=== PATIENT | female | born 1945 | race Caucasian/White ===

== ENCOUNTER 2018-05-17 13:08 | Observation (INO) | payer OTHER ==
--- OUTSIDE RECORDS SUMMARY | 2018-05-17 13:10 | XMS REPORT | Clinical Summary ---
:1945 Author Organization [facility] Address [address] [place] [address] Care Team Providers Name Role Phone Ken Hastings MD Primary Care Provider Allergies Active Allergy Reactions Severity Noted Date Comments Codeine Other (See Comments) 04/01/2016 nausea Medications Medication Sig Dispensed Refills Start Date End Date Status aspirin (ECOTRIN) 81 Take 81 mg by 0 Active MG enteric coated mouth daily. tablet diphenhydrAMINE Take 25 mg by 0 Active (BENADRYL ALLERGY) 25 mouth daily as mg tablet needed for sleep. ALPRAZolam (XANAX) 1 TK ONE T PO HS 5 03/15/2016 Active MG tablet PRF INSOMNIA CLOPIDOGREL BISULFATE Take by mouth. 0 Active (PLAVIX ORAL) atorvastatin TK 1 T PO QD 3 11/11/2016 Active (LIPITOR) 80 MG tablet SYMBICORT 80-4.5 U 2 PUFFS PO 5 09/09/2016 Active mcg/actuation inhaler BID. amitriptyline TK ONE T PO 4 11/11/2016 Active (ELAVIL) 50 MG tablet HS. clopidogrel (PLAVIX) TAKE 1 90 tablet 0 02/07/2018 Active 75 mg tablet TABLET(75 MG) BY MOUTH DAILY atorvastatin TAKE 1 90 tablet 0 04/03/2018 Active (LIPITOR) 80 MG TABLET(80 MG) tablet BY MOUTH DAILY ATORVASTATIN CALCIUM Take by mouth 0 Discontinued (LIPITOR ORAL) daily. 8 clopidogrel (PLAVIX) TK 1 T PO QD 3 11/11/2016 Discontinued 75 mg tablet 8 clopidogrel (PLAVIX) Take 1 tablet 90 tablet 0 09/12/2017 Discontinued 75 mg tablet (75 mg total) 8 by mouth daily. atorvastatin Take 1 tablet 90 tablet 0 09/18/2017 Discontinued (LIPITOR) 80 MG (80 mg total) 8 tablet by mouth daily. atorvastatin TAKE 1 90 tablet 0 01/04/2018 Discontinued (LIPITOR) 80 MG TABLET(80 MG) 8 tablet BY MOUTH DAILY clopidogrel (PLAVIX) TAKE 1 90 tablet 0 01/04/2018 Discontinued 75 mg tablet TABLET(75 MG) 8 BY MOUTH DAILY Active Problems Problem Noted Date Carotid artery disease 04/19/2016 Shortness of breath 04/19/2016 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 Encounters Date Type Specialty Care Team Description 04/03/2018 Refill Cardiology Sandro Diez MD Med Refill 02/07/2018 Refill Cardiology Sandro Diez MD Med Refill 01/03/2018 Refill Cardiology Sandro Diez MD Med Refill 12/19/2017 Office Visit Cardiology Sandro Diez MD Peripheral arterial occlusive disease (Primary Dx); 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 09/18/2017 Orders Only Cardiology Stephane Esparza MA 09/12/2017 Orders Only Cardiology Stephane Esparza MA after 05/16/2017 Family History Medical History Relation Name Comments Cancer Mother bladder Heart disease Mother Relation Name Status Comments Father Mother (Age 70) Social History Tobacco Use Types Packs/Day Years Used Date Former Smoker Comments: quit 2 years a go Alcohol Use Drinks/Week oz/Week Comments No Sex Assigned at Date Recorded Not on file Job Start Date Occupation Industry Not on file Not on file Not on file Travel History Travel Start Travel End No recent travel history available. Last Filed Vital Signs Vital Sign Reading Time Taken Blood Pressure 137/65 12/19/2017 11:10 AM CDT Pulse 92 12/19/2017 11:10 AM CDT Temperature - - Respiratory Rate - - Oxygen Saturation - - Inhaled Oxygen Concentration - - Weight 67.1 kg (148 lb) 12/19/2017 11:10 AM CDT Height 160 cm (5' 3") 12/19/2017 11:10 AM CDT Body Mass Index 26.22 12/19/2017 11:10 AM CDT Plan of Treatment Date Type Specialty Care Team Description 12/18/2018 Office Visit Cardiology Sandro Diez MD [address] [facility] [address] [place] [id number] Health Maintenance Due Date Last Done Comments BREAST CANCER SCREENING 11/27/1993 COLON CANCER SCREENING 11/27/1993 SHINGRIX VACCINE (1 of 2) 11/27/1993 ZOSTER VACCINE 2003 PNEUMOCOCCAL POLYSACCHARIDE VACCINE AGE 65 AND OVER 11/27/2008 PNEUMOCOCCAL-13 11/27/2008 INFLUENZA VACCINE 01/10/2018 Implants Implanted Type Area Entry Driver Operator Device Shelf Model / Identifier Expiration Serial / Date Lot Stent Bili Trnshptc Palmaz Dariana Bln-Xpndbl [id number] - [id number] Peripheral or N/A: CORDIS FREEMAN 12/09/2016 [id number] / Implanted: 04/01/2016 (Quantity not on file) Biliary N/A ENDOVASCULAR / Stents [id number] Results Not on fileafter 05/16/2017 Insurance Payer Benefit Plan / Group Subscriber ID Type Phone Address UHC MEDICARE [employer] MEDICARE DIRECT MCR xxxxxxxxx HMO Advance Directives Patient has advance care planning documents on file. For more information, please contact:Campbell Chance[address] [place] [phone]
[2018-05-17] MEDS ORDERED: MEPERIDINE HCL 50 MG/ML AMP ONE ×2 (14:19→17:16)
[2018-05-17] MEDS ORDERED: NA CHLORIDE 0.9% 1,000 ML ONE (14:19)
[2018-05-17] MEDS ORDERED: ONDANSETRON 4 MG/2 ML VIAL ONE (14:19)
[2018-05-17 14:45] LABS: Absolute Lymphocytes (CBC) 0.9 K/uL (0.7-4.9); Absolute Monocytes 0.7 K/uL (0.1-1.3); Absolute Neutrophil 13.7 K/uL (1.8-8.0); Basophils % 0.3 % (0-1.3); Eosinophils % 0.2 % (0-4.4); Hematocrit 41.9 % (36.0-45.0); Lymphocytes % 5.7 % (15.3-44.8); MCH 27.9 pg (27.0-35.0); MCV 83.1 fL (80-100); MPV 8.6 fL (7.6-11.3); Monocytes % 4.5 % (3.3-12.3); RBC Red Blood Cell Count 5.04 M/uL (3.86-4.86)
[2018-05-17 14:56] LABS: Albumin 3.8 g/dL (3.4-5.0); Bilirubin Direct 0.1 mg/dL (0-0.2); Bilirubin Total 0.4 mg/dL (0.2-1.0); Potassium 3.8 mmol/L (3.5-5.1); Protein, Total 7.9 g/dL (6.4-8.2)
[2018-05-17 15:32] LABS: Blood Morphology Comment NOT SEEN (NOT SEEN); Platelet Estimate ADEQ; Urine White Blood Cell Casts OK
[2018-05-17] MEDS ORDERED: METRONIDAZOLE 500mg IVPB 500 MG/100 ML BAG IV ONE (16:17)
[2018-05-17] MEDS ORDERED: CEFTRIAXONE/SWI 1gm 1 GM/10 ML SYR ONE (16:17)
--- NOTE | 2018-05-17 16:37 | RAD REPORT ---
EXAM DESCRIPTION: CTAbdomen Pelvis W Contrast - 05/17/2018 4:24 pm CLINICAL HISTORY: Abdominal pain. ABD PAIN COMPARISON: CT ABD PELVIS W CONTRAST dated 12/22/2013; CT ABD PELVIS W CONTRAST dated 01/05/2012 TECHNIQUE: Biphasic CT imaging of the abdomen and pelvis was performed with 100 ml non-ionic IV cont rast. All CT scans are performed using dose optimization technique as appropriate and may include automated exposure control or mA/KV adjustment according to patient size. FINDINGS: The lung bases are clear. Small low-density lesions in the liver most compatible with cysts. No aggressive liver lesion or bili pedro dilatation. A small hiatal hernia is present. Spleen, pancreas, adrenal glands and kidneys are wi thin normal limits. Small benign renal cysts. No bowel obstruction, free air, free fluid or abscess. Moderate inflammatory changes stranding colon in the left upper quadrant noted at the level of the splenic flexure, extending to involve the descen ding colon and rectosigmoid colon. The appendix is not identified as a discrete structure, however, n o secondary findings of appendicitis are identified. No evidence of significant lymphadenopathy. No suspicious bony findings. IMPRESSION: Moderate colonic inflammation is seen most notable in the left upper quadrant compatible with moderate colitis. No bowel obstruction, free air or abscess.
--- NOTE | 2018-05-17 16:54 | ER ---
Nurse's Notes [facility] Name: Cathryn Montana Age: 72 yrs Sex: Female : 1945 Arrival Date: 05/17/2018 Time: 13:09 Bed 24 Private MD: Ken Hastings Diagnosis: Colitis;Dehydration;Intractable pain Presentation: 05/17 13:19 Presenting complaint: Patient states: She is having a bout of colitis with N/V/D, la1 denies blood in stool. Transition of care: patient was not received from another setting of care. Onset of symptoms was May 17, 2018. Risk Assessment: Do you want to hurt yourself or someone else? Patient reports no desire to harm self or others. Initial Sepsis Screen: Does the patient meet any 2 criteria? No. Patient's initial sepsis screen is negative. Does the patient have a suspected source of infection? No. Patient's initial sepsis screen is negative. Care prior to arrival: None. 13:19 Method Of Arrival: Ambulatory la1 13:19 Acuity: MERLY 3 la1 Historical: - Allergies: 13:21 Codeine; la1 - PMHx: 13:21 COPD; blocked artery-no [place]; bleeding lung; abdominal tumor; la1 - PSHx: 13:21 Hysterectomy; stomach tumor removal; la1 - Immunization history:: Adult Immunizations up to date. - Social history:: Smoking status: Patient/guardian denies using tobacco, the patient reports quitting approximately 3 years ago. - Ebola Screening: : No symptoms or risks identified at this time. - Family history:: not pertinent. - Hospitalizations: : No recent hospitalization is reported. Screenin:44 Abuse screen: Denies threats or abuse. Denies injuries from another. Nutritional ls4 screening: No deficits noted. Tuberculosis screening: No symptoms or risk factors identified. Fall Risk No fall in past 12 months (0 pts). No secondary diagnosis (0 pts). IV access (20 points). Ambulatory Aid- None/Bed Rest/Nurse Assist (0 pts). Gait- Normal/Bed Rest/Wheelchair (0 pts) Mental Status- Oriented to own ability (0 pts). Assessment: 13:30 General: Appears distressed, uncomfortable, ill, Behavior is cooperative, anxious. ls4 Pain: Complains of pain in abdomen Pain currently is 8 out of 10 on a pain scale. Neuro: Level of Consciousness is awake, alert, obeys commands, Oriented to person, place, time, situation. Respiratory: Airway is patent Respiratory effort is even, unlabored, Respiratory pattern is regular. GI: Bowel sounds present X 4 quads. Guarding noted Reports lower abdominal pain, upper abdominal pain, cramping, diarrhea. : No deficits noted. Derm: No deficits noted. Musculoskeletal: No deficits noted. 14:30 Reassessment: No changes from previously documented assessment. Patient and/or family ls4 updated on plan of care and expected duration. Pain level reassessed. Patient is alert, oriented x 3, equal unlabored respirations, skin warm/dry/pink. 15:26 Reassessment: Patient appears in no apparent distress at this time. Patient is alert, ls4 oriented x 3, equal unlabored respirations, skin warm/dry/pink. Patient states symptoms have improved. 19:07 Reassessment: Patient appears in no apparent distress at this time. Patient and/or ls4 family updated on plan of care and expected duration. Pain level reassessed. Patient is alert, oriented x 3, equal unlabored respirations, skin warm/dry/pink. Patient states symptoms have improved. 19:21 Reassessment: Patient appears in no apparent distress at this time. Patient and/or ls4 family updated on plan of care and expected duration. Pain level reassessed. REPORT CALLED TO CANDELARIO BHAKTA, QUESTIONS ANSWERED. Vital Signs: 13:28 BP 117 / 57; Pulse 99; Resp 18; Temp 97.2; Pulse Ox 100% on R/A; Weight 60.78 kg; la1 Height 5 ft. 4 in. (162.56 cm); Pain 7/10; 14:39 Pain 3/10; ls4 15:26 BP 113 / 69; Pulse 88; Resp 16; Pulse Ox 99% on R/A; Pain 3/10; ls4 16:30 BP 108 / 76; Pulse 82; Resp 16; Pulse Ox 99% on R/A; Pain 5/10; ls4 17:53 BP 102 / 52; Pulse 84; Resp 16; Temp 98.0; Pulse Ox 99% on R/A; Pain 3/10; ls4 19:06 BP 142 / 57; Pulse 80; Resp 16; Pulse Ox 99% on R/A; Pain 3/10; ls4 13:28 Body Mass Index 23.00 (60.78 kg, 162.56 cm) la1 ED Course: 13:09 Patient arrived in ED. as 13:09 Ken Hastings MD is Private Physician. as 13:10 Nikko James MD is Attending Physician. la1 13:19 Arm band placed on left wrist. la1 13:20 Triage completed. la1 13:30 Inserted saline lock: 20 gauge in left antecubital area, using aseptic technique. ls4 13:45 Laura Fields, RN is Primary Nurse. ls4 14:13 Initial lab(s) drawn, by me, sent to lab. ls4 14:44 Patient has correct armband on for positive identification. Placed in gown. Bed in low ls4 position. Call light in reach. Side rails up X2. Warm blanket given. Pillow given. 14:46 No provider procedures requiring assistance completed. ls4 16:[address] nj 16:21 CT completed. Patient tolerated procedure well. Patient moved back from CT. vr 16:24 CT Abd/Pelvis - W/Contrast: IV and PO contrast please In Process Unspecified. EDMS 16:53 Ken Hastings MD is Hospitalizing Provider. rn 19:57 Patient admitted, IV remains in place. intact. ls4 Administered Medications: 14:18 Drug: Zofran 4 mg Route: IVP; Site: left antecubital; ls4 14:39 Follow up: Response: No adverse reaction ls4 14:18 Drug: Demerol 50 mg Route: IVP; Site: left antecubital; ls4 14:39 Follow up: Response: No adverse reaction; Marked relief of symptoms ls4 14:39 Follow up: Pain 3/10 ls4 14:19 Drug: NS 0.9% 1000 ml Route: IV; Rate: 1000 ml; Site: left antecubital; ls4 15:38 Follow up: IV Status: Completed infusion; IV Intake: 1000ml ls4 16:14 Drug: Rocephin - (cefTRIAXone) 1 grams Route: IVPB; Infused Over: 30 mins; Site: left ls4 antecubital; 16:41 Follow up: Response: No adverse reaction; IV Status: Completed infusion ls4 16:39 Drug: Flagyl 500 mg Volume: 100 ml; Route: IVPB; Rate: 200 ml/hr; Infused Over: 30 ls4 mins; Site: left antecubital; 17:09 Follow up: IV Status: Completed infusion; IV Intake: 100ml ls4 17:10 Drug: Demerol 50 mg Route: IVP; Site: left antecubital; ls4 17:55 Follow up: Response: No adverse reaction; Marked relief of symptoms; Pain is decreased ls4 Intake: 15:38 IV: 1000ml; Total: 1000ml. ls4 17:09 IV: 100ml; Total: 1100ml. ls4 Outcome: 16:54 Decision to Hospitalize by Provider. rn 19:56 Admitted to Med/surg accompanied by tech, family with patient, via stretcher, room 232, ls4 with chart, Report called to ALONDRA 19:56 Condition: stable 19:59 Patient left the ED. ls4 Signatures: Dispatcher [employer] EDMS Yoko Whitt Roman, MD MD rn Davis, Victoria vr Attema, Lee, RN RN la1 Jacques Lopez Ronaldo, RN RN rv Laura Fields RN RN ls4 Corrections: (The following items were deleted from the chart) 15:39 14:49 IV Intake: 1000ml ls4 ls4 15:40 15:39 Response: No adverse reaction; Marked relief of symptoms ls4 ls4 15:41 15:39 Pain 3/10 Adult ls4 ls4 16:40 16:14 Rocephin - (cefTRIAXone) 1 grams IVPB in left antecubital over 30 mins rv ls4 16:41 16:40 (cefTRIAXone) 1 grams IVPB in left antecubital over 30 mins ls4 ls4 19:19 17:53 BP 102 / 52; Pulse 84bpm; Resp 16bpm; Pulse Ox 99% RA; Pain 3/10; ls4 ls4
--- NOTE | 2018-05-17 16:55 | EDPHYS ---
Physician Documentation [facility] Name: Cathryn Montana Age: 72 yrs Sex: Female : 1945 Arrival Date: 05/17/2018 Time: 13:09 Bed 24 Private MD: Ken Hastings ED Physician Nikko James HPI: 05/17 16:06 This 72 yrs old Female presents to ER via Ambulatory with complaints of rn Abdominal Pain - Colitis Flare Up. 16:06 The patient presents with abdominal pain that is diffuse. Onset: The symptoms/episode rn began/occurred this morning. The symptoms do not radiate. Associated signs and symptoms: Pertinent positives: nausea and vomiting, diarrhea, Pertinent negatives: fever, vomiting blood. Modifying factors: The symptoms are alleviated by nothing, the symptoms are aggravated by movement, touching the area. Severity of pain: At its worst the pain was moderate in the emergency department the pain is unchanged. The patient has experienced similar episodes in the past. The patient has not recently seen a physician. Historical: - Allergies: 13:21 Codeine; la1 - PMHx: 13:21 COPD; blocked artery-no [place]; bleeding lung; abdominal tumor; la1 - PSHx: 13:21 Hysterectomy; stomach tumor removal; la1 - Immunization history:: Adult Immunizations up to date. - Social history:: Smoking status: Patient/guardian denies using tobacco, the patient reports quitting approximately 3 years ago. - Ebola Screening: : No symptoms or risks identified at this time. - Family history:: not pertinent. - Hospitalizations: : No recent hospitalization is reported. ROS: 16:06 Constitutional: Negative for fever, chills, and weight loss, Eyes: Negative for injury, rn pain, redness, and discharge, Cardiovascular: Negative for chest pain, palpitations, and edema, Respiratory: Negative for shortness of breath, cough, wheezing, and pleuritic chest pain, Abdomen/GI: Negative for constipation MS/Extremity: Negative for injury and deformity, Skin: Negative for injury, rash, and discoloration, Neuro: Negative for headache, weakness, numbness, tingling, and seizure. Exam: 16:06 Constitutional: This is a well developed, well nourished patient who is awake, alert, rn appears uncomfortable Head/Face: Normocephalic, atraumatic. ENT: MMM Cardiovascular: Regular rate and rhythm, No pulse deficits. Respiratory: Mild tachypnea but clear breath sounds Abdomen/GI: soft, + mild lower abd tenderness with guarding MS/ Extremity: Pulses equal, no cyanosis. Neurovascular intact. Full, normal range of motion. Equal circumference. Neuro: Awake and alert, GCS 15, oriented to person, place, time, and situation. Cranial nerves II-XII grossly intact. Motor strength 5/5 in all extremities. Sensory grossly intact. Vital Signs: 13:28 BP 117 / 57; Pulse 99; Resp 18; Temp 97.2; Pulse Ox 100% on R/A; Weight 60.78 kg; la1 Height 5 ft. 4 in. (162.56 cm); Pain 7/10; 14:39 Pain 3/10; ls4 15:26 BP 113 / 69; Pulse 88; Resp 16; Pulse Ox 99% on R/A; Pain 3/10; ls4 16:30 BP 108 / 76; Pulse 82; Resp 16; Pulse Ox 99% on R/A; Pain 5/10; ls4 17:53 BP 102 / 52; Pulse 84; Resp 16; Temp 98.0; Pulse Ox 99% on R/A; Pain 3/10; ls4 19:06 BP 142 / 57; Pulse 80; Resp 16; Pulse Ox 99% on R/A; Pain 3/10; ls4 13:28 Body Mass Index 23.00 (60.78 kg, 162.56 cm) la1 MDM: 13:32 Patient medically screened. rn 16:51 Differential diagnosis: diverticulitis, gastritis, non-specific abd pain, urinary tract rn infection. Data reviewed: vital signs, nurses notes, lab test result(s), radiologic studies, CT scan, and as a result, I will admit patient. Counseling: I had a detailed discussion with the patient and/or guardian regarding: the historical points, exam findings, and any diagnostic results supporting the discharge/admit diagnosis, lab results, radiology results, the need for further work-up and treatment in the hospital. Admission orders: after a detailed discussion of the patient's condition and case, the admit orders are written by me. ED course: Spoke with Dr. Hastings, will admit for colitis and pain control. . 05/17 13:38 Order name: Occult Blood rn 05/17 14:43 Order name: Basic Metabolic Panel; Complete Time: 16:04 EDMS 05/17 14:43 Order name: Liver (Hepatic) Function; Complete Time: 16:04 EDMS 05/17 14:43 Order name: Lipase; Complete Time: 16:04 EDMS 05/17 14:43 Order name: CBC with Automated Diff; Complete Time: 16:04 EDMS 05/17 14:44 Order name: Occult Blood EDWI 05/17 14:44 Order name: Clostridium difficile DNA EDMS 05/17 13:22 Order name: IV Saline Lock; Complete Time: 15:37 la1 05/17 13:22 Order name: Labs collected and sent; Complete Time: 15:37 [facility] 05/17 13:22 Order name: CT Abd/Pelvis - W/Contrast: IV and PO contrast please; Complete Time: 16:38 wv1 05/17 14:44 Order name: Stool Culture EDWI 05/17 14:56 Order name: CBC Smear Scan; Complete Time: 16:04 EDMS Administered Medications: 14:18 Drug: Zofran 4 mg Route: IVP; Site: left antecubital; ls4 14:39 Follow up: Response: No adverse reaction ls4 14:18 Drug: Demerol 50 mg Route: IVP; Site: left antecubital; ls4 14:39 Follow up: Response: No adverse reaction; Marked relief of symptoms ls4 14:39 Follow up: Pain 3/10 ls4 14:19 Drug: NS 0.9% 1000 ml Route: IV; Rate: 1000 ml; Site: left antecubital; ls4 15:38 Follow up: IV Status: Completed infusion; IV Intake: 1000ml ls4 16:14 Drug: Rocephin - (cefTRIAXone) 1 grams Route: IVPB; Infused Over: 30 mins; Site: left ls4 antecubital; 16:41 Follow up: Response: No adverse reaction; IV Status: Completed infusion ls4 16:39 Drug: Flagyl 500 mg Volume: 100 ml; Route: IVPB; Rate: 200 ml/hr; Infused Over: 30 ls4 mins; Site: left antecubital; 17:09 Follow up: IV Status: Completed infusion; IV Intake: 100ml ls4 17:10 Drug: Demerol 50 mg Route: IVP; Site: left antecubital; ls4 17:55 Follow up: Response: No adverse reaction; Marked relief of symptoms; Pain is decreased ls4 Disposition: 05/17/18 16:54 Hospitalization ordered by Ken Hastings for Inpatient Admission. Preliminary diagnosis are Colitis, Dehydration, Intractable pain. - Bed requested for Telemetry/MedSurg (Inpatient). - Status is Inpatient Admission. ls4 - Condition is Stable. - Problem is new. - Symptoms have improved. UTI on Admission? No Signatures: Dispatcher [employer] EDWI Nancie Ramos RN RN Nikko Tubbs MD MD rn Attema, Lee, RN RN la1 Byron Ornelas RN RN rv Laura Fields RN RN ls4 Corrections: (The following items were deleted from the chart) 15:05 13:53 Abdomen ordered. EDWI EDMS 15:30 14:59 BASIC METABOLIC PANEL+C.LAB.BRZ ordered. EDWI EDWI 15:30 14:59 CBC+H.LAB.BRZ ordered. EDWI EDWI 15:30 14:59 HEPATIC FUNCTION+C.LAB.BRZ ordered. EDWI EDMS 15:30 14:59 LIPASE+C.LAB.BRZ ordered. EDWI EDMS 15:32 15:00 Stool Culture+BA.LAB.BRZ ordered. EDWI EDMS 15:32 15:00 CDIFF.MR.LAB.BRZ ordered. EDWI EDMS 16:23 14:59 Creatinine for Radiology+C.LAB.BRZ ordered. EDWI EDWI 19:08 16:54 Hospitalization Ordered by Ken Hastings MD for Inpatient Admission. Preliminary diagnosis is Colitis; Dehydration; Intractable pain. Bed requested for Telemetry/MedSurg (Inpatient). Status is Inpatient Admission. Condition is Stable. Problem is new. Symptoms have improved. UTI on Admission? No. rn 19:59 19:08 05/17/2018 16:54 Hospitalization Ordered by Ken Hastings MD for Inpatient ls4 Admission. Preliminary diagnosis is Colitis; Dehydration; Intractable pain. Bed requested for Telemetry/MedSurg (Inpatient). Status is Inpatient Admission. Condition is Stable. Problem is new. Symptoms have improved. UTI on Admission? No. dw
[2018-05-17] MEDS ORDERED: ACETAMINOPHEN 500 MG TAB PO PRN (19:22)
[2018-05-17 20:09] VITALS: BMI 24.5
[2018-05-17] MEDS ORDERED: PNEUMOCOCCAL VACCINE 0.5 ML IMVAC ONE (21:02)
[2018-05-17] MEDS ORDERED: INFLUENZA VACCINE (for 3y+) 0.5 ML DOSE IMVAC ONE (21:02)
[2018-05-17] MEDS: NA CHLORIDE 0.9% 1,000 ML IV SCH (22:07)
[2018-05-17] MEDS: METRONIDAZOLE 500mg IVPB 500 MG/100 ML BAG IV SCH ×2 (22:39→22:48)
[2018-05-18] MEDS ORDERED: ALPRAZOLAM 1 MG TABLET PO ONE (00:42)
[2018-05-18] MEDS ORDERED: AMITRIPTYLINE 50 MG TAB PO ONE (00:44)
[2018-05-18] MEDS ORDERED: RANITIDINE 150 MG TABLET PO ONE (00:45)
[2018-05-18 05:10] LABS: Absolute Lymphocytes (CBC) 2.9 K/uL (0.7-4.9); Absolute Monocytes 0.8 K/uL (0.1-1.3); Absolute Neutrophil 9.3 K/uL (1.8-8.0); Basophils % 0.4 % (0-1.3); Eosinophils % 2.1 % (0-4.4); Hematocrit 35.4 % (36.0-45.0); Lymphocytes % 21.6 % (15.3-44.8); MCH 27.5 pg (27.0-35.0); MCV 83.4 fL (80-100); MPV 8.6 fL (7.6-11.3); Monocytes % 5.8 % (3.3-12.3); RBC Red Blood Cell Count 4.24 M/uL (3.86-4.86)
[2018-05-18 05:25] LABS: BUN Blood Urea Nitrogen 11 mg/dL (7-18); Bicarbonate 23 mmol/L (21-32); Glucose Level 89 mg/dL (74-106); Potassium 3.6 mmol/L (3.5-5.1); Sodium Level 141 mmol/L (136-145)
[2018-05-18] MEDS: NA CHLORIDE 0.9% 1,000 ML IV SCH ×2 (05:28→15:22)
[2018-05-18] MEDS: METRONIDAZOLE 500mg IVPB 500 MG/100 ML BAG IV SCH ×4 (05:29→23:25)
[2018-05-18] MEDS: CEFTRIAXONE/SWI 1gm 1 GM/10 ML SYR IV SCH ×2 (08:46→21:09)
[2018-05-18] MEDS ORDERED: CEFTRIAXONE 1 GM/NS 50 ML 1 GM/50 ML BAG IV SCH (09:00)
[2018-05-18] MEDS ORDERED: SODIUM CHLORIDE 0.9% 10ML INJ IV PRN (15:41)
[2018-05-18] MEDS ORDERED: POTASSIUM CL SA 10 MEQ TAB PO ONE (16:14)
[2018-05-18] MEDS ORDERED: NA CHLORIDE 0.9% 1,000 ML IV SCH (17:00)
[2018-05-18] MEDS: PANTOPRAZOLE 40 MG INJ IVP SCH (17:33)
[2018-05-18 19:41] LABS: Urine Appearance CLEAR; Urine Bilirubin NEGATIVE (NEG); Urine Blood NEGATIVE (NEG); Urine Color YELLOW; Urine Glucose NEGATIVE (NEG); Urine Protein NEGATIVE (NEG); Urine Urobilinogen 0.2 mg/dL (0.2-1.0); Urine pH 6.5 (5.0-7.0)
[2018-05-18 19:58] LABS: Urine Microscopic Reflex NO UMIC
[2018-05-18] MEDS ORDERED: AMITRIPTYLINE 50 MG TAB PO SCH (21:00)
[2018-05-18] MEDS ORDERED: ALPRAZOLAM 1 MG TABLET PO SCH (21:00)
[2018-05-18] MEDS ORDERED: ONDANSETRON 4 MG/2 ML VIAL IV PRN (21:05)
[2018-05-19 05:23] LABS: Absolute Lymphocytes (CBC) 2.4 K/uL (0.7-4.9); Absolute Monocytes 0.5 K/uL (0.1-1.3); Basophils % 0.6 % (0-1.3); Eosinophils % 3.2 % (0-4.4); Hematocrit 33.7 % (36.0-45.0); Lymphocytes % 29.3 % (15.3-44.8); MCH 27.7 pg (27.0-35.0); MCV 83.6 fL (80-100); MPV 8.8 fL (7.6-11.3); Monocytes % 6.5 % (3.3-12.3); RBC Red Blood Cell Count 4.03 M/uL (3.86-4.86)
[2018-05-19 05:42] LABS: BUN Blood Urea Nitrogen 9 mg/dL (7-18); Bicarbonate 23 mmol/L (21-32); Glucose Level 87 mg/dL (74-106); Potassium 3.7 mmol/L (3.5-5.1); Sodium Level 141 mmol/L (136-145)
[2018-05-19] MEDS ORDERED: POTASSIUM CL SA 10 MEQ TAB PO ONE (05:57)
[2018-05-19] MEDS: METRONIDAZOLE 500mg IVPB 500 MG/100 ML BAG IV SCH ×2 (06:31→12:19)
[2018-05-19] MEDS: PANTOPRAZOLE 40 MG INJ IVP SCH (08:56)
[2018-05-19] MEDS: CEFTRIAXONE/SWI 1gm 1 GM/10 ML SYR IV SCH (08:56)
[2018-05-19 09:22] VITALS: O2SAT 96
[2018-05-19 13:56] VITALS: BP 109/56; TEMP 97.1
[2018-05-19] MEDS ORDERED: PANTOPRAZOLE 40 MG INJ IVP SCH (15:42)
--- NOTE | 2018-05-19 17:30 | PN ---
Date of Progress Note: 05/18/2018 The patient states she feels considerably better today. She does have occasional diarrhea; however, the cramping has subsided considerably. Vital signs are stable. Abdominal examination is in within normal limits. Her white count has dropped some. We will continue on present regimen. Advance her diet as tolerated , could be discharged tomorrow. HR/MODL Voice ID: [id number] Report ID: [id number]
--- NOTE | 2018-05-19 18:27 | PN ---
Date of Progress Note: 05/19/2018 The patient feels back to baseline today. She has tolerated her diet. Her white count is now 4000 r leoncio. She can be discharged on Keflex and Flagyl for 10 days. Follow up with me in 10 days and then perhaps a elevator serviceman. HR/MODL Voice ID: [id number] Report ID: [id number]
--- NOTE | 2018-05-20 02:31 | HP ---
Date of Admission: 05/17/2018 Chief Complaint: Abdominal pain and cramping. History Of Present Illness: Patient presented to the emergency room with the above outlined symptoms . Patient has a long history of bowel problems; however, she states she has had most episodes. She controls herself with dietary control; however, at this point become much more severe, and therefore she presented to the emergency room. Past Medical History: Patient did have a colonoscopy a number of years ago with no specific diagnosi s known to the patient. Social History: Patient has a history of smoking. Social alcohol intake on occasion. Family History: Noncontributory. Physical Examination: General: Patient is a thin elderly female, in mild distress. Vital Signs: Stable vital signs. HEENT: Normocephalic. Pupils equal and reactive to light and accommodation. Fundi negative. ENT n egative. Neck: Trachea midline. Thyroid is not palpable. Chest: Clear to P and A. Cardiovascular: PMI in midclavicular line. Heart sounds normal. Peripheral pulses present and equa l bilaterally. Abdomen: No organomegaly. Bowel sounds hyperactive. Moderate tenderness in the lower abdominal are a. No guarding, rebound, tenderness, or rigidity. Extremities: Moderately dehydrated. Good tone and movement bilaterally. Reflexes physiologic. Rectal: Deferred. Pelvic: Deferred. Impression: Acute colitis. Plan: Patient will be admitted, placed on IV antibiotics. CAT scan confirms colitis. Depending on response in this, I feel take 1 to 3 days of IV antibiotics and plan will be to send her home on anti biotics, possibility of GI consult in the hospital also be entertained. HR/MODL Voice ID: [id number]
== END 2018-05-19 15:15 | disposition home or self-care (01) ==
LOC: ER 13:08 → ERHOLD 18:28 → INTOOBSV 18:28 → 2ND 19:29
PROVIDERS: ADMIT Family Medicine; ATTEND Family Medicine
DX: K52.9 Noninfective gastroenteritis and colitis, unspecified (principal); Z87.891 Personal history of nicotine dependence; Z23 Encounter for immunization
CPT/HCPCS: 36415 ×2; 74177; 80048 ×3; 80076; 81003; 82274; 83690; 85025 ×3; 87045; 87046; 87493; 90670; 96361; 96365; 96368; 96375; 99285; C9113 ×2; G0008; G0009; G0378 ×2; J0696 ×4; J2175 ×2; J2405 ×2; J7030 ×3; Q2035; Q9967

== ENCOUNTER 2019-06-07 19:43 | Emergency (ER) | payer OTHER ==
[2019-06-07] MEDS ORDERED: predniSONE 20 MG TAB ONE (20:18)
[2019-06-07] MEDS ORDERED: LEVALBUTEROL 1.25 MG/3 ML NEB ONE (20:18)
[2019-06-07] MEDS ORDERED: IPRATROPIUM BROM 0.5MG/2.5ML ONE (20:18)
--- NOTE | 2019-06-07 20:26 | RAD REPORT ---
EXAM DESCRIPTION: Kya Gil And Kori (2 Views)06/07/2019 8:21 pm CLINICAL HISTORY: Cough COMPARISON: 2016 FINDINGS: Mild chronic opacities right lung base The lungs appear clear of acute infiltrate. The heart is normal size IMPRESSION: No acute abnormalities displayed
--- NOTE | 2019-06-07 21:11 | ER ---
Nurse's Notes [facility] Name: Cathryn Montana Age: 73 yrs Sex: Female : 1945 Arrival Date: 06/07/2019 Time: 19:45 Bed 20 Private MD: Ken Hastings Diagnosis: Chronic obstructive pulmonary disease with (acute) exacerbation Presentation: 06/07 19:56 Presenting complaint: Patient states: cough and congestion x 1 week, not getting tl2 better. Pt reports sore throat and productive cough. Denies fever or flu like symptoms. Transition of care: patient was not received from another setting of care. Onset of symptoms was May 31, 2019. Risk Assessment: Do you want to hurt yourself or someone else? Patient reports no desire to harm self or others. Initial Sepsis Screen: Does the patient meet any 2 criteria? HR > 90 bpm. Does the patient have a suspected source of infection? No. Patient's initial sepsis screen is negative. Care prior to arrival: None. 19:56 Method Of Arrival: Ambulatory tl2 19:56 Acuity: MERLY 3 tl2 Triage Assessment: 19:58 General: Appears in no apparent distress. comfortable, Behavior is calm, cooperative, tl2 appropriate for age. Pain: Complains of pain in throat. Neuro: Level of Consciousness is awake, alert, obeys commands, Oriented to person, place, time, situation. Cardiovascular: Denies chest pain, Patient's skin is warm and dry. Rhythm is irregular. Respiratory: Reports cough that is productive, persistent pain with cough Airway is patent Respiratory effort is even, unlabored, Respiratory pattern is regular, symmetrical, Breath sounds are coarse bilaterally. the patient has moderate shortness of breath Denies labored breathing. GI: No signs and/or symptoms were reported involving the gastrointestinal system. : No signs and/or symptoms were reported regarding the genitourinary system. Derm: Skin is pink, warm \T\ dry. Historical: - Allergies: 19:58 Codeine; tl2 - Home Meds: 19:58 aspirin 81 mg Oral chew 1 tab once daily [Active]; Lipitor Oral [Active]; tl2 - PMHx: 19:58 abdominal tumor; bleeding lung; blocked artery-no ND; COPD; tl2 - PSHx: 19:58 Lobectomy; Heart stents; tl2 - Immunization history:: Adult Immunizations up to date. - Social history:: Smoking status: Patient/guardian denies using tobacco. - Ebola Screening: : No symptoms or risks identified at this time. Screenin:00 Abuse screen: Denies threats or abuse. Nutritional screening: No deficits noted. tl2 Tuberculosis screening: No symptoms or risk factors identified. Fall Risk Ambulatory Aid- Gait- Weak (10 pts.). Assessment: 19:58 General: see triage assessment. tl2 20:37 Reassessment: Patient appears in no apparent distress at this time. Patient and/or tl2 family updated on plan of care and expected duration. Pain level reassessed. Patient is alert, oriented x 3, equal unlabored respirations, skin warm/dry/pink. pt returned from Xray, breathing treatment in progress. 21:23 Reassessment: Patient appears in no apparent distress at this time. Patient and/or tl2 family updated on plan of care and expected duration. Pain level reassessed. Patient is alert, oriented x 3, equal unlabored respirations, skin warm/dry/pink. pt states she feels better after breathing treatment. VSS. Pt verbalized understanding of discharge instructions, need for follow up and prescription usage. Vital Signs: 19:58 BP 141 / 66; Pulse 101; Resp 20; Temp 98.2; Pulse Ox 100% on R/A; Weight 66.22 kg; tl2 Height 5 ft. 4 in. (162.56 cm); Pain 2/10; 20:36 BP 121 / 69; Pulse 100; Resp 22; Pulse Ox 100% on Nebulizer Mask; tl2 21:23 BP 131 / 85; Pulse 100; Resp 18; Pulse Ox 100% on R/A; tl2 19:58 Body Mass Index 25.06 (66.22 kg, 162.56 cm) tl2 ED Course: 19:45 Patient arrived in ED. es 19:45 Ken Hastings MD is Private Physician. es 19:49 Cecil Spangler [facility]NP-C [facility]. la1 19:49 Everett Darnell MD is Attending Physician. la1 19:56 Syeda Torres, JONO is Primary Nurse. tl2 19:57 Triage completed. tl2 19:58 Arm band placed on right wrist. tl2 20:00 Patient has correct armband on for positive identification. Bed in low position. Call tl2 light in reach. Side rails up X 1. Adult w/ patient. 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 Pulse ox on. NIBP on. 20:13 Flu Sent. tl2 20:18 Chest Pa And Lat (2 Views) XRAY In Process Unspecified. EDMS 20:27 Flu Sent. tl2 21:23 No provider procedures requiring assistance completed. Patient did not have IV access tl2 during this emergency room visit. Administered Medications: 20:27 Drug: Xopenex (3) 1.25 mg Route: Inhalation; tl2 20:27 Drug: AtroVENT Aerosol 0.5 mg Route: Inhalation; tl2 20:27 Drug: predniSONE 60 mg Route: PO; tl2 21:25 Follow up: Response: No adverse reaction tl2 Outcome: 21:10 Discharge ordered by . la1 21:23 Discharged to home ambulatory, with family. tl2 21:23 Condition: stable 21:23 Discharge instructions given to patient, Instructed on discharge instructions, follow up and referral plans. medication usage, Demonstrated understanding of instructions, follow-up care, medications, Prescriptions given X 3. 21:25 Patient left the ED. tl2 Signatures: Dispatcher [employer] Fozia Mercer Lee, DIRECTOR RELIGIOUS EDUCATION-C DIRECTOR RELIGIOUS EDUCATION-Cla1 Syeda Torres, RN RN tl2
--- NOTE | 2019-06-07 21:11 | EDPHYS ---
Physician Documentation [facility] Name: Cathryn Montana Age: 73 yrs Sex: Female : 1945 Arrival Date: 06/07/2019 Time: 19:45 Bed 20 Private MD: Ken Hastings ED Physician Everett Darnell HPI: 06/07 20:14 This 73 yrs old Female presents to ER via Ambulatory with complaints of la1 Cough, Congestion. 20:14 The patient or guardian reports cough, that is constant, described as moderate. Onset: la1 The symptoms/episode began/occurred 1 week(s) ago. Severity of symptoms: At their worst the symptoms were mild. Modifying factors: The symptoms are alleviated by nothing, the symptoms are aggravated by nothing. Associated signs and symptoms: Pertinent negatives: chest pain, diarrhea, ear ache, fever, nausea, rhinorrhea, sore throat, vomiting. The patient has not experienced similar symptoms in the past. Historical: - Allergies: 19:58 Codeine; tl2 - Home Meds: 19:58 aspirin 81 mg Oral chew 1 tab once daily [Active]; Lipitor Oral [Active]; tl2 - PMHx: 19:58 abdominal tumor; bleeding lung; blocked artery-no CA; COPD; tl2 - PSHx: 19:58 Lobectomy; Heart stents; tl2 - Immunization history:: Adult Immunizations up to date. - Social history:: Smoking status: Patient/guardian denies using tobacco. - Ebola Screening: : No symptoms or risks identified at this time. ROS: 20:14 Constitutional: Negative for fever, chills, and weight loss, Eyes: Negative for injury, la1 pain, redness, and discharge, ENT: Negative for injury, pain, and discharge, Neck: Negative for injury, pain, and swelling, Cardiovascular: Negative for chest pain, palpitations, and edema. 20:14 Abdomen/GI: Negative for abdominal pain, nausea, vomiting, diarrhea, and constipation, Back: Negative for injury and pain, MS/Extremity: Negative for injury and deformity, Neuro: Negative for headache, weakness, numbness, tingling, and seizure. 20:14 Respiratory: Positive for cough, Negative for hemoptysis, orthopnea, pleurisy. Exam: 20:15 Constitutional: This is a well developed, well nourished patient who is awake, alert, la1 and in no acute distress. Head/Face: Normocephalic, atraumatic. Eyes: Pupils equal round and reactive to light, extra-ocular motions intact. Periorbital areas with no swelling, redness, or edema. ENT: Mucous membranes moist. Neck: Trachea midline, no thyromegaly or masses palpated, and no cervical lymphadenopathy. Supple, full range of motion without nuchal rigidity, or vertebral point tenderness. No Meningismus. Chest/axilla: Normal chest wall appearance and motion. Nontender with no deformity. No lesions are appreciated. Cardiovascular: Regular rate and rhythm with a normal S1 and S2. No gallops, murmurs, or rubs. Normal PMI, no JVD. No pulse deficits. Respiratory: Lungs have equal breath sounds bilaterally, clear to auscultation. No rales, rhonchi or wheezes noted. No increased work of breathing, no retractions or nasal flaring. Back: No spinal tenderness. No costovertebral tenderness. Full range of motion. Neuro: Awake and alert, GCS 15, oriented to person, place, time, and situation. . Normal gait. Vital Signs: 19:58 BP 141 / 66; Pulse 101; Resp 20; Temp 98.2; Pulse Ox 100% on R/A; Weight 66.22 kg; tl2 Height 5 ft. 4 in. (162.56 cm); Pain 2/10; 20:36 BP 121 / 69; Pulse 100; Resp 22; Pulse Ox 100% on Nebulizer Mask; tl2 21:23 BP 131 / 85; Pulse 100; Resp 18; Pulse Ox 100% on R/A; tl2 19:58 Body Mass Index 25.06 (66.22 kg, 162.56 cm) tl2 MDM: 19:49 Patient medically screened. la1 21:08 Data reviewed: vital signs, nurses notes, lab test result(s), radiologic studies, I la1 have discussed the patient's presentation/case with the attending Emergency Department Physician; and as a result, I will discharge patient. Data interpreted: Pulse oximetry: on room air is 100 %. Interpretation: normal. Counseling: I had a detailed discussion with the patient and/or guardian regarding: the historical points, exam findings, and any diagnostic results supporting the discharge/admit diagnosis, lab results, radiology results, the need for outpatient follow up, to return to the emergency department if symptoms worsen or persist or if there are any questions or concerns that arise at home. Special discussion: Based on the patient's history, exam, and Dx evaluation, there is no indication for emergent intervention or inpatient Tx. It is understood by the patient/guardian that if the Sx's persist or worsen they need to return immediately for re-evaluation. 06/07 20:07 Order name: Flu; Complete Time: 21:00 la1 06/07 20:06 Order name: Chest Pa And Lat (2 Views) XRAY; Complete Time: 20:31 la1 Administered Medications: 20:27 Drug: Xopenex (3) 1.25 mg Route: Inhalation; tl2 20:27 Drug: AtroVENT Aerosol 0.5 mg Route: Inhalation; tl2 20:27 Drug: predniSONE 60 mg Route: PO; tl2 21:25 Follow up: Response: No adverse reaction tl2 Disposition: 06/08 05:59 Co-signature as Attending Physician, Everett Darnell MD I agree with the assessment and tw4 plan of care. Disposition: 06/07/19 21:10 Discharged to Home. Impression: Chronic obstructive pulmonary disease with (acute) exacerbation. - Condition is Stable. - Discharge Instructions: Chronic Obstructive Pulmonary Disease, How to Use an Inhaler, Chronic Obstructive Pulmonary Disease Exacerbation. - Prescriptions for Prednisone 20 mg Oral Tablet - take 2 tablet by ORAL route once daily for 5 days; 10 tablet. Albuterol Sulfate 90 mcg/actuation - inhale 1-2 puff by INHALATION route every 4-6 hours; 1 Inhaler. Zithromax 500 mg Oral Tablet - take 1 tablet by ORAL route once daily for 5 days; 5 tablet. - Medication Reconciliation Form, Thank You Letter, Antibiotic Education form. - Follow up: Private Physician; When: 2 - 3 days; Reason: Recheck today's complaints, Re-evaluation by your physician. Follow up: Emergency Department; When: As needed; Reason: Trouble breathing, Worsening of condition. - Problem is new. - Symptoms have improved. Signatures: Dispatcher [employer] EDMS Cecil Spangler, MARY BETH SENIOR FINANCIAL ANALYST-Cla1 Syeda Torres RN RN tl2 Everett Darnell MD MD tw4 Corrections: (The following items were deleted from the chart) 06/07 21:25 21:10 06/07/2019 21:10 Discharged to Home. Impression: Chronic obstructive pulmonary tl2 disease with (acute) exacerbation. Condition is Stable. Forms are Medication Reconciliation Form, Thank You Letter, Antibiotic Education, Prescription Opioid Use. Follow up: Private Physician; When: 2 - 3 days; Reason: Recheck today's complaints, Re-evaluation by your physician. Follow up: Emergency Department; When: As needed; Reason: Trouble breathing, Worsening of condition. Problem is new. Symptoms have improved. la1
[2019-06-07 21:41] VITALS: TEMP 98.2; O2SAT 100
[2019-06-07 21:43] VITALS: BP 131/85
== END 2019-06-07 21:25 | disposition home or self-care (01) ==
LOC: ER 19:43
DX: J44.1 Chronic obstructive pulmonary disease with (acute) exacerbation (principal); Z95.818 Presence of other cardiac implants and grafts; Z79.82 Long term (current) use of aspirin; Z88.5 Allergy status to narcotic agent
CPT/HCPCS: 71046; 87804; 99285; J7512

== ENCOUNTER 2020-02-14 14:32 | Emergency (ER) | payer OTHER ==
--- OUTSIDE RECORDS SUMMARY | 2020-02-14 14:34 | XMS REPORT | Clinical Summary ---
:1945 Author Organization [facility] Address [address] [place] [address] Care Team Providers Name Role Phone MD Darling Primary Care Provider Allergies Active Allergy Reactions Severity Noted Date Comments Codeine Other (See Comments) 04/01/2016 nausea Medications Medication Sig Dispensed Refills Start Date End Date Status aspirin (ECOTRIN) 81 Take 81 mg by 0 Active MG enteric coated mouth daily. tablet diphenhydrAMINE Take 25 mg by 0 Active (BENADRYL ALLERGY) mouth daily 25 mg tablet as needed for sleep. ALPRAZolam (XANAX) 1 TK ONE T PO 5 03/15/2016 Active MG tablet HS PRF INSOMNIA atorvastatin TK 1 T PO QD 3 11/11/2016 Act phong (LIPITOR) 80 MG tablet amitriptyline TK ONE T PO 4 11/11/2016 Act phong (ELAVIL) 50 MG HS. tablet clopidogreL (PLAVIX) TAKE 1 TABLET 90 tablet 0 12/02/2019 Active 75 mg tablet BY MOUTH DAILY atorvastatin TAKE 1 90 tablet 0 12/02/2019 Active (LIPITOR) 80 MG TABLET(80 MG) tablet BY MOUTH DAILY clopidogrel (PLAVIX) TAKE 1 TABLET 90 tablet 0 02/12/201905/12 0/20 Discontinued 75 mg tablet BY MOUTH 19 (Reorde r) DAILY atorvastatin TAKE 1 90 tablet 0 02/18/2019 05/21/20 Discon tinued (LIPITOR) 80 MG TABLET(80 MG) 19 (Reorder) tablet BY MOUTH DAILY clopidogrel (PLAVIX) TAKE 1 TABLET 90 tablet 0 05/22/201908/10 0/20 Discontinued 75 mg tablet BY MOUTH 20 DAILY atorvastatin TAKE 1 90 tablet 0 05/22/2019 08/20/19 Discon tinued (LIPITOR) 80 MG TABLET(80 MG) 20 tablet BY MOUTH DAILY clopidogreL (PLAVIX) TAKE 1 TABLET 90 tablet 0 08/20/201911/11 Discontinued 75 mg tablet BY MOUTH 20 DAILY atorvastatin TAKE 1 90 tablet 0 08/20/2019 12/02/19 Discon tinued (LIPITOR) 80 MG TABLET(80 MG) 20 tablet BY MOUTH DAILY Active Problems Problem Noted Date CAD in [place] artery 12/18/2018 Subclavian arterial stenosis 12/18/2018 Carotid artery disease 04/19/2016 Shortness of breath 04/19/2016 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 Encounters Date Type Specialty Care Team Description 11/30/2019 Refill Cardiology Sandro Diez MD Med Refi ll 08/20/2019 Refill Cardiology Sandro Diez MD Med Refi ll 05/21/2019 Refill Cardiology Sandro Diez MD Med Refi ll 02/18/2019 Refill Cardiology Sandro Diez MD Med Refi ll after 02/13/2019 Family History Medical History Relation Name Comments Cancer Mother bladder Heart disease Mother Relation Name Status Comments Father Mother (Age 70) Social History Tobacco Use Types Packs/Day Years Used Date Former Smoker 53 Smokeless Tobacco: Never Used Comments: quit 2 years a go Alcohol Use Drinks/Week oz/Week Comments No Sex Assigned at Date Recorded Not on file Job Start Date Occupation Industry Not on file Not on file Not on file Travel History Travel Start Travel End No recent travel history available. Last Filed Vital Signs Not on file Plan of Treatment Health Maintenance Due Date Last Done Comments COLONOSCOPY SCREENING 11/27/1993 SHINGLES VACCINES (#1) 11/27/1993 65+ PNEUMOCOCCAL VACCINE (1 of 2 - PCV13) 11/27/2008 INFLUENZA VACCINE 03/12/2020 Implants Implanted Type Area Supervisor Painting Shipyard Device Shelf Model / Identifier Expiration Serial / Date Lot Stent Bili Trnshptc Palmaz Dariana [id number]-[id number] mm - [id number] Peripheral or N/A: CORDIS FREEMAN 12/09/2016 [id number] / Implanted: 04/01/2016 at [facility] (Quantity not on file) Duncan stout N/A ENDOVASCULAR / Stents [id number] Results Not on fileafter 02/13/2019 Advance Directives For more information, please contact: [phone] Type Date Recorded 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
[2020-02-14 15:43] LABS: Absolute Lymphocytes (CBC) 1.4 K/uL (0.7-4.9); Basophils % 0.4 % (0-1.3); Hematocrit 37.8 % (36.0-45.0); Lymphocytes % 10.4 % (15.3-44.8); MPV 8.3 fL (7.6-11.3); RBC Red Blood Cell Count 5.29 M/uL (3.86-4.86)
[2020-02-14] MEDS ORDERED: ONDANSETRON 4 MG/2 ML VIAL ONE (15:45)
[2020-02-14] MEDS ORDERED: NA CHLORIDE 0.9% 1,000 ML ONE (15:45)
[2020-02-14] MEDS ORDERED: MORPHINE 2 MG/ML SYR ONE ×2 (15:45→16:23)
[2020-02-14] MEDS ORDERED: FAMOTIDINE 20 MG/2 ML VIAL IV ONE (15:45)
[2020-02-14 16:03] LABS: ALT/SGPT 19 U/L (12-78); AST/SGOT 22 U/L (15-37); Albumin 3.5 g/dL (3.4-5.0); Alkaline Phosphatase 181 U/L (45-117); BUN Blood Urea Nitrogen 23 mg/dL (7-18); Bicarbonate 24 mmol/L (21-32); Bilirubin Direct < 0.1 mg/dL (0-0.2); Bilirubin Total 0.3 mg/dL (0.2-1.0); Glucose Level 99 mg/dL (74-106); Lipase 97 U/L (73-393); Magnesium 2.3 mg/dL (1.8-2.4); Potassium 3.8 mmol/L (3.5-5.1); Protein, Total 7.6 g/dL (6.4-8.2); Sodium Level 140 mmol/L (136-145)
--- NOTE | 2020-02-14 16:39 | RAD REPORT ---
EXAM DESCRIPTION: CT - Abdomen Pelvis W Contrast - 02/14/2020 4:22 pm CLINICAL HISTORY: Abdominal pain COMPARISON: 2017 TECHNIQUE: Computed axial tomography of the abdomen pelvis was obtained. 100 cc Isovue-300 was admin istered intravenously. Oral contrast was not requested which limits evaluation of bowel. All CT scans are performed using dose optimization technique as appropriate and may include automated exposure control or mA/KV adjustment according to patient size. FINDINGS: The liver, spleen, pancreas, adrenal and kidneys appear unremarkable. The wall of the splenic flexure of the colon is thickened. Stranding and ill-defined fluid is present within the adjacent fat. No free air. No abscess IMPRESSION: Moderate colitis involving the splenic flexure
[2020-02-14] MEDS ORDERED: metroNIDAZOLE 500 MG TABLET ONE (17:08)
[2020-02-14] MEDS ORDERED: CIPROFLOXACIN HCL 500 MG TAB ONE (17:09)
--- NOTE | 2020-02-14 17:14 | EDPHYS ---
Physician Documentation [facility] Name: Cathryn Montana Age: 74 yrs Sex: Female : 1945 Arrival Date: 02/14/2020 Time: 14:32 Bed 17 Private MD: Ortiz Thomas HPI: 02/13 15:18 This 74 yrs old Female presents to ER via Wheelchair with complaints of cp Abdominal Pain - colitis flare up. 15:18 The patient presents with abdominal pain. Onset: The symptoms/episode began/occurred cp this morning. Associated signs and symptoms: Pertinent positives: diarrhea, nausea, Pertinent negatives: blood in stools, constipation, fever, vomiting. The symptoms are described as constant. Historical: - Allergies: 14:43 Codeine; sv - PMHx: 14:43 abdominal tumor; bleeding lung; blocked artery-no [place]; COPD; Colitis; sv - PSHx: 14:43 Lobectomy; Heart stents; sv - Immunization history:: Adult Immunizations up to date. - Social history:: Smoking status: Patient denies any tobacco usage or history of. ROS: 15:25 Constitutional: Negative for body aches, chills, fever. cp 15:25 Eyes: Negative for injury, pain, redness, and discharge. cp 15:25 Cardiovascular: Negative for chest pain. cp 15:25 Respiratory: Negative for cough, shortness of breath, wheezing. 15:25 Abdomen/GI: Positive for abdominal pain, nausea, vomiting, and diarrhea, Negative for constipation, black/tarry stool, rectal bleeding. 15:25 : Negative for urinary symptoms. 15:25 All other systems are negative. cp Exam: 15:30 Constitutional: The patient appears in no acute distress, alert, awake, non-toxic, well cp developed, well nourished, uncomfortable. 15:30 Head/Face: Normocephalic, atraumatic. cp 15:30 Eyes: Periorbital structures: appear normal, Conjunctiva: normal, no exudate, no injection, Lids and lashes: appear normal, bilaterally. 15:30 ENT: External ear(s): are unremarkable, Nose: is normal, Posterior pharynx: Airway: no evidence of obstruction, patent. 15:30 Chest/axilla: Inspection: normal. 15:30 Cardiovascular: Rate: normal, Rhythm: regular. 15:30 Respiratory: the patient does not display signs of respiratory distress, Respirations: normal, no use of accessory muscles, no retractions, labored breathing, is not present, Breath sounds: are clear throughout, no decreased breath sounds. 15:30 Abdomen/GI: Inspection: distension, that is mild, in the abdomen diffusely, Bowel sounds: active, all quadrants, Palpation: soft, in all quadrants, moderate abdominal tenderness, in the left upper quadrant, rebound tenderness, is not appreciated, involuntary guarding, is elicited in the left upper quadrant. 15:30 Back: pain, is absent. 15:30 Neuro: Orientation: to person, place \T\ time. Mentation: is normal. Vital Signs: 14:43 BP 119 / 54; Pulse 78; Resp 20; Temp 97.1; Pulse Ox 99% ; sv 15:51 BP 142 / 65; Pulse 86; Resp 15; Pulse Ox 100% on R/A; ca1 17:02 BP 145 / 57; Pulse 82; Resp 16 S; Pulse Ox 100% on R/A; ca1 17:42 BP 142 / 57; Pulse 95; Resp 16 S; Pulse Ox 98% on R/A; ca1 MDM: 15:15 Patient medically screened. cp 16:00 Differential diagnosis: bowel obstruction, diverticulitis, non-specific abd pain, cp pancreatitis, Pyelonephritis, Ureterolithiasis, urinary tract infection. 16:53 Data reviewed: vital signs, nurses notes, lab test result(s), radiologic studies, CT cp scan. Counseling: I had a detailed discussion with the patient and/or guardian regarding: the historical points, exam findings, and any diagnostic results supporting the discharge/admit diagnosis, lab results, radiology results. Response to treatment: pain and nausea markedly improved. Special discussion: admission for IV antibiotics and pain control, but patient would like to try outpatient treatment and will return to ED worsening symptoms. 02/13 15:17 Order name: Basic Metabolic Panel; Complete Time: 16:06 cp 02/13 16:06 Interpretation: Normal except: CL 108; BUN 23; GFR 81. cp 02/13 15:17 Order name: CBC with Diff; Complete Time: 16:06 cp 02/13 16:07 Interpretation: Normal except: WBC 13.1; RBC 5.29; HGB 11.9; MCV 71.4; MCH 22.6; MCHC cp 31.6; RDW 19.7; VIJAY% 84.5; LYM% 10.4; NEUT A 11.0. 02/13 15:17 Order name: Hepatic Function; Complete Time: 16:06 cp 02/13 16:07 Interpretation: Normal except: ALK 181; GLOB 4.1; A/G 0.9. cp 02/13 15:17 Order name: Lipase; Complete Time: 16:06 cp 02/13 15:17 Order name: Magnesium; Complete Time: 16:06 cp 02/13 15:17 Order name: Lactate; Complete Time: 16:06 cp 02/13 15:17 Order name: CT Abd/Pelvis - IV Contrast Only; Complete Time: 16:45 cp 02/13 15:17 Order name: IV Saline Lock; Complete Time: 15:52 cp 02/13 15:17 Order name: Labs collected and sent; Complete Time: 15:52 cp 02/13 16:53 Order name: PO challenge; Complete Time: 17:01 cp Administered Medications: 15:25 Drug: NS 0.9% 500 ml Route: IV; Rate: 500 ml/hr; Site: left antecubital; ca1 16:09 Follow up: Response: No adverse reaction; IV Status: Completed infusion; IV Intake: ca1 500ml 15:26 Drug: Pepcid 20 mg Route: IVP; Site: left antecubital; ca1 16:09 Follow up: Response: No adverse reaction ca1 15:28 Drug: Zofran (Ondansetron) 4 mg Route: IVP; Site: left antecubital; ca1 16:09 Follow up: Response: No adverse reaction; Nausea is decreased ca1 15:30 Drug: morphine 2 mg {Note: rass 0.} Route: IVP; Site: left antecubital; ca1 16:09 Follow up: Response: No adverse reaction; Pain is decreased; RASS: Alert and Calm (0) ca1 16:00 Drug: metroNIDAZOLE 500 mg Route: PO; ca1 17:34 Follow up: Response: No adverse reaction ca1 16:09 Drug: NS 0.9% 500 ml Route: IV; Rate: 100 ml/hr; Site: left antecubital; ca1 17:35 Follow up: Response: No adverse reaction; IV Status: Completed infusion ca1 16:14 Drug: morphine 2 mg {Note: rass 0.} Route: IVP; Site: left antecubital; ca1 16:54 Follow up: Response: No adverse reaction; Marked relief of symptoms; Pain is decreased ca1 17:00 Drug: Cipro 500 mg Route: PO; ca1 17:35 Follow up: Response: No adverse reaction ca1 Disposition: 02/14 11:09 Co-signature as Attending Physician, Ortiz Verdugo MD I agree with the assessment and caryl plan of care. Disposition: 02/14/20 17:13 Discharged to Home. Impression: Left sided colitis. - Condition is Stable. - Discharge Instructions: Colitis. - Prescriptions for Zofran 4 mg Oral Tablet - take 1 tablet by ORAL route every 12 hours As needed; 20 tablet. Tramadol 50 mg Oral Tablet - take 1 tablet by ORAL route every 8 hours as needed; 12 tablet. Augmentin 875- 125 mg Oral Tablet - take 1 tablet by ORAL route every 12 hours for 10 days; 20 tablet. - Medication Reconciliation Form, Thank You Letter, Antibiotic Education, Prescription Opioid Use form. - Follow up: Private Physician; When: 2 - 3 days; Reason: Recheck today's complaints. - Problem is an acute exacerbation. - Symptoms have improved. Signatures: Dispatcher [employer] Rukhsana Corona RN RN sv Anderson, Corey, MD MD cha Page, Corey, PA PA cp Irasema Loredo RN RN ca1 Corrections: (The following items were deleted from the chart) 02/13 17:14 17:13 02/14/2020 17:13 Discharged to Home. Impression: Colitis; Left sided colitis. cp Condition is Stable. Prescriptions for Zofran 4 mg Oral Tablet - take 1 tablet by ORAL route every 12 hours As needed; 20 tablet, Cipro 500 mg Oral Tablet - take 1 tablet by ORAL route every 12 hours for 10 days; 20 tablet, Metronidazole 500 mg Oral Tablet - take 1 tablet by ORAL route every 8 hours; 30 tablet, Tramadol 50 mg Oral Tablet - take 1 tablet by ORAL route every 8 hours as needed; 12 tablet. and Forms are Medication Reconciliation Form, Thank You Letter, Antibiotic Education, Prescription Opioid Use. Follow up: Private Physician; When: 2 - 3 days; Reason: Recheck today's complaints. Problem is an acute exacerbation. Symptoms have improved. cp 17:43 17:14 02/14/2020 17:13 Discharged to Home. Impression: Left sided colitis. Condition is ca1 Stable. Discharge Instructions: Colitis. Prescriptions for Zofran 4 mg Oral Tablet - take 1 tablet by ORAL route every 12 hours As needed; 20 tablet, Cipro 500 mg Oral Tablet - take 1 tablet by ORAL route every 12 hours for 10 days; 20 tablet, Metronidazole 500 mg Oral Tablet - take 1 tablet by ORAL route every 8 hours; 30 tablet, Tramadol 50 mg Oral Tablet - take 1 tablet by ORAL route every 8 hours as needed; 12 tablet. and Forms are Medication Reconciliation Form, Thank You Letter, Antibiotic Education, Prescription Opioid Use. Follow up: Private Physician; When: 2 - 3 days; Reason: Recheck today's complaints. Problem is an acute exacerbation. Symptoms have improved. cp
--- NOTE | 2020-02-14 17:14 | ER ---
Nurse's Notes [facility] Name: Cathryn Montana Age: 74 yrs Sex: Female : 1945 Arrival Date: 02/14/2020 Time: 14:32 Bed 17 Private MD: Diagnosis: Left sided colitis Presentation: 02/13 14:42 Note Pt currently in the bathroom. sv 14:43 Chief complaint: Patient states: abd pain, n/v/d started this morning. Hx colitis. sv Coronavirus screen: Client denies travel out of the [place] in the last 14 days. At this time, the client does not indicate any symptoms associated with coronavirus-19. Ebola Screen: No symptoms or risks identified at this time. Risk Assessment: Do you want to hurt yourself or someone else? Patient reports no desire to harm self or others. Onset of symptoms was February 14, 2020. 14:43 Method Of Arrival: Wheelchair sv 14:43 Acuity: MERLY 3 sv 14:43 Initial Sepsis Screen: Does the patient meet any 2 criteria? No. Patient's initial sv sepsis screen is negative. Does the patient have a suspected source of infection? Yes: Acute abdominal pain. Historical: - Allergies: 14:43 Codeine; sv - PMHx: 14:43 abdominal tumor; bleeding lung; blocked artery-no [place]; COPD; Colitis; sv - PSHx: 14:43 Lobectomy; Heart stents; sv - Immunization history:: Adult Immunizations up to date. - Social history:: Smoking status: Patient denies any tobacco usage or history of. Screenin:25 Abuse screen: Denies threats or abuse. Denies injuries from another. Nutritional ca1 screening: No deficits noted. Tuberculosis screening: No symptoms or risk factors identified. Fall Risk IV access (20 points). Assessment: 15:25 General: Appears in no apparent distress. uncomfortable, Behavior is calm, cooperative, ca1 appropriate for age. Pain: Complains of pain in abdomen Pain currently is 8 out of 10 on a pain scale. Pain began this morning. Neuro: Level of Consciousness is awake, alert, obeys commands, Oriented to person, place, time, situation. Cardiovascular: Heart tones S1 S2 present Capillary refill < 3 seconds Patient's skin is warm and dry. Respiratory: Airway is patent Respiratory effort is even, unlabored, Respiratory pattern is regular, symmetrical, Breath sounds are clear bilaterally. GI: Abdomen is flat, non-distended, Bowel sounds present X 4 quads. Abd is soft X 4 quads Abdomen is tender to palpation X 4 quads. Reports diarrhea, nausea. : No signs and/or symptoms were reported regarding the genitourinary system. EENT: No signs and/or symptoms were reported regarding the EENT system. Derm: Skin is intact, is healthy with good turgor, Skin is pink, warm \T\ dry. Musculoskeletal: Circulation, motion, and sensation intact. Capillary refill < 3 seconds. 16:15 Reassessment: Patient appears in no apparent distress at this time. Patient and/or ca1 family updated on plan of care and expected duration. Pain level reassessed. Patient is alert, oriented x 3, equal unlabored respirations, skin warm/dry/pink. Pt to CT. 17:02 Reassessment: Patient appears in no apparent distress at this time. Patient and/or ca1 family updated on plan of care and expected duration. Pain level reassessed. Patient is alert, oriented x 3, equal unlabored respirations, skin warm/dry/pink. PO challenge completed. No reports of N/V at this time. Notified provider Patient states feeling better. Patient states symptoms have improved. 17:07 Reassessment: Pt ambulated to restroom, steady gait, reports decrease in abdominal pain ca1 and feels better. 17:42 Reassessment: Patient appears in no apparent distress at this time. Patient is alert, ca1 oriented x 3, equal unlabored respirations, skin warm/dry/pink. Patient states feeling better. Patient states symptoms have improved. Vital Signs: 14:43 BP 119 / 54; Pulse 78; Resp 20; Temp 97.1; Pulse Ox 99% ; sv 15:51 BP 142 / 65; Pulse 86; Resp 15; Pulse Ox 100% on R/A; ca1 17:02 BP 145 / 57; Pulse 82; Resp 16 S; Pulse Ox 100% on R/A; ca1 17:42 BP 142 / 57; Pulse 95; Resp 16 S; Pulse Ox 98% on R/A; ca1 ED Course: 14:32 Patient arrived in ED. as 14:43 Arm band placed on. sv 14:45 Triage completed. sv 15:10 Ortiz Cabrera PA is PHCP. cp 15:10 Ortiz Verdugo MD is Attending Physician. cp 15:12 Irasema Loredo RN is Primary Nurse. ca1 15:25 Patient has correct armband on for positive identification. Placed in gown. Bed in low ca1 position. Call light in reach. Side rails up X2. Pulse ox on. NIBP on. Warm blanket given. 15:27 No provider procedures requiring assistance completed. Initial lab(s) drawn, by me, ca1 sent to lab. Inserted saline lock: 22 gauge in left antecubital area, using aseptic technique. Blood collected. 15:46 Lactate Sent. ca1 16:22 CT Abd/Pelvis - IV Contrast Only In Process Unspecified. EDMS 17:34 IV discontinued, intact, bleeding controlled, No redness/swelling at site. Pressure ca1 dressing applied. Administered Medications: 15:25 Drug: NS 0.9% 500 ml Route: IV; Rate: 500 ml/hr; Site: left antecubital; ca1 16:09 Follow up: Response: No adverse reaction; IV Status: Completed infusion; IV Intake: ca1 500ml 15:26 Drug: Pepcid 20 mg Route: IVP; Site: left antecubital; ca1 16:09 Follow up: Response: No adverse reaction ca1 15:28 Drug: Zofran (Ondansetron) 4 mg Route: IVP; Site: left antecubital; ca1 16:09 Follow up: Response: No adverse reaction; Nausea is decreased ca1 15:30 Drug: morphine 2 mg {Note: rass 0.} Route: IVP; Site: left antecubital; ca1 16:09 Follow up: Response: No adverse reaction; Pain is decreased; RASS: Alert and Calm (0) ca1 16:00 Drug: metroNIDAZOLE 500 mg Route: PO; ca1 17:34 Follow up: Response: No adverse reaction ca1 16:09 Drug: NS 0.9% 500 ml Route: IV; Rate: 100 ml/hr; Site: left antecubital; ca1 17:35 Follow up: Response: No adverse reaction; IV Status: Completed infusion ca1 16:14 Drug: morphine 2 mg {Note: rass 0.} Route: IVP; Site: left antecubital; ca1 16:54 Follow up: Response: No adverse reaction; Marked relief of symptoms; Pain is decreased ca1 17:00 Drug: Cipro 500 mg Route: PO; ca1 17:35 Follow up: Response: No adverse reaction ca1 Intake: 16:09 IV: 500ml; Total: 500ml. ca1 Outcome: 17:13 Discharge ordered by MD. cp 17:34 Discharged to home ambulatory, with family. ca1 17:34 Condition: stable 17:34 Discharge instructions given to patient, Instructed on discharge instructions, follow up and referral plans. medication usage, Demonstrated understanding of instructions, follow-up care, medications, Prescriptions given X 3. 17:43 Patient left the ED. ca1 Signatures: Dispatcher [employer] EDMS Rukhsana Andrew RN RN sv Yoko Whitt Corey, PA PA cp Acob, Cheryl, RN RN ca1 Corrections: (The following items were deleted from the chart) 14:46 14:43 Resp 20bpm; Pulse Ox 100%; Temp 97.1F; sv sv 17:02 17:02 Reassessment: Patient appears in no apparent distress at this time. Patient ca1 and/or family updated on plan of care and expected duration. Pain level reassessed. Patient is alert, oriented x 3, equal unlabored respirations, skin warm/dry/pink. PO challenge completed. No reports of N/V at this time. Notified provider ca1 17:35 17:35 Response: No adverse reaction; IV Status: Completed infusion ca1 ca1 17:43 17:34 Discharge instructions given to patient, Instructed on discharge instructions, ca1 follow up and referral plans. medication usage, Demonstrated understanding of instructions, follow-up care, medications, Prescriptions given X 4, ca1
[2020-02-16 01:18] VITALS: TEMP 97.1
[2020-02-16 01:22] VITALS: BP 142/57; O2SAT 98
== END 2020-02-14 17:43 | disposition home or self-care (01) ==
LOC: ER 14:32
DX: K51.50 Left sided colitis without complications (principal); Z95.818 Presence of other cardiac implants and grafts; Z88.5 Allergy status to narcotic agent
CPT/HCPCS: 96361; 85025; 80048; 36415; 83735; 80076; 83605; 83690; 74177; 96375; 96374; 99284; Q9967; J2270 ×2; J7030; J2405

== ENCOUNTER 2022-01-02 23:30 | Inpatient (IN) | payer OTHER ==
--- OUTSIDE RECORDS SUMMARY | 2022-01-02 23:33 | XMS REPORT | Continuity of Care Document ---
:1945 Author Organization [facility] t Address [address] [place] [address] [address] [place] [address] Care Team Providers Name Role Phone ELI Attending Clinician Unavailable NARENDRA Attending Clinician Unavailable Chioma Osorio Attending Clinician Unavailable Payers Payer Name Policy Type Policy Number Effective Date Expiration Date S cale [facility] [id number] 2021 00:00:00 Problems This patient has no known problems. Allergies, Adverse Reactions, Alerts Allergy Allergy Status Severity Reaction(s) Onset Inactive Treating Comm ents Source Name Type Date Date Clinician No Known DA Active U [facility] Drug 03-05 Allergie 00:00: s 00 Medications This patient has no known medications. Procedures This patient has no known procedures. Encounters Start End Encounter Admission Attending Care Care Encounter Source Date/Time Date/Time Type Type Clinicians Facility Department ID 2021-09-12 Outpatient [facility] [id number] [place] 00:18:41 [facility] [id number] [facility] 2021-08-04 Outpatient [facility] [id number] [place] 10:30:40 [facility] 2021-08-03 [facility] [id number] [place] 11:26:33 [facility] 2021-03-05 Inpatient Elective Ade Osorio [facility] [id number] [facility] 10:00:00 Sha Finley Results This patient has no known results.
[2022-01-03 00:12] LABS: Lymphocytes % 17.5 % (15.3-44.8); MCV 52.9 fL (80-100); MPV 8.8 fL (7.6-11.3); RBC Red Blood Cell Count 3.93 M/uL (3.86-4.86)
[2022-01-03 00:13] LABS: Protime INR 1.08
[2022-01-03 00:15] LABS: Hematocrit 20.8 % (36.0-45.0)
[2022-01-03 00:30] LABS: ALT/SGPT 13 U/L (12-78); AST/SGOT 14 U/L (15-37); Albumin 3.7 g/dL (3.4-5.0); Alkaline Phosphatase 144 U/L (45-117); BUN Blood Urea Nitrogen 17 mg/dL (7-18); Bicarbonate 25 mmol/L (21-32); Bilirubin Total 0.3 mg/dL (0.2-1.0); Glomerular Filtration Rate 89 ml/min (=/>90); Glucose Level 90 mg/dL (74-106); Magnesium 2.1 mg/dL (1.8-2.4); NT PRO-BNP 115 pg/mL (<450); Potassium 3.9 mmol/L (3.5-5.1); Protein, Total 7.4 g/dL (6.4-8.2); Sodium Level 139 mmol/L (136-145); Troponin High Sensitivity 4.4 pg/mL (<58.9)
[2022-01-03 00:31] LABS: Bilirubin Direct < 0.1 mg/dL (0-0.2)
[2022-01-03 00:51] LABS: Blood Morphology Comment NOTED (NOT SEEN); Platelet Estimate INCR; White Blood Cell Scan OK (OK)
[2022-01-03 00:52] LABS: Hypochromasia 3+
--- NOTE | 2022-01-03 01:12 | ER ---
Nurse's Notes [facility] Name: Cathryn Montana Age: 76 yrs Sex: Female : 1945 Arrival Date: 01/02/2022 Time: 23:32 Bed 19 Private MD: Diagnosis: Anemia, unspecified;Chest pain, unspecified Presentation: 01/02 23:47 Chief complaint: Patient states: "Starting about an hour ago I started getting really vc1 bad chest pain. It starts in the middle of my chest goes up the right side of my neck down my jaw to my ear.". Ebola Screen: No symptoms or risks identified at this time. Initial Sepsis Screen: Does the patient meet any 2 criteria? HR > 90 bpm. No. Patient's initial sepsis screen is negative. Does the patient have a suspected source of infection? No. Patient's initial sepsis screen is negative. Risk Assessment: Do you want to hurt yourself or someone else? Patient reports no desire to harm self or others. Onset of symptoms was January 02, 2022 at 22:30. 23:47 Method Of Arrival: Ambulatory vc1 23:47 Acuity: MERLY 3 vc1 01/03 02:59 Coronavirus screen: Vaccine status: Patient reports receiving the 2nd dose of the covid bh1 vaccine. At this time, the client does not indicate any symptoms associated with coronavirus-19. Triage Assessment: 01/02 23:51 General: Appears in no apparent distress. uncomfortable, Behavior is anxious. Pain: vc1 Complains of pain in mid-sternal area Pain radiates to right supraclavicular area, right clavicle, right submandibular area, right sternocleidomastoid, right posterior aspect of neck and right lateral aspect of neck Quality of pain is described as pressure, stabbing, Pain began suddenly. Neuro: Level of Consciousness is awake, alert, obeys commands, Oriented to person, place, time, situation, Appropriate for age. Cardiovascular: Reports chest pain. Respiratory: Airway is patent Respiratory effort is even, unlabored, Respiratory pattern is regular, symmetrical. GI: No deficits noted. No signs and/or symptoms were reported involving the gastrointestinal system. : No deficits noted. No signs and/or symptoms were reported regarding the genitourinary system. Derm: Skin is intact, is healthy with good turgor, Skin temperature is warm. Musculoskeletal: No deficits noted. Historical: - Allergies: 23:49 Codeine; vc1 - Home Meds: 23:49 aspirin oral [Active]; Plavix 75 mg Oral tab 1 tab once daily [Active]; vc1 - PMHx: 23:49 abdominal tumor; bleeding lung; blocked artery-no [place]; Colitis; COPD; vc1 - PSHx: 23:49 Appendectomy; Hysterectomy; vc1 - Immunization history:: Adult Immunizations up to date. - Social history:: Smoking status: Patient reports the use of cigarette tobacco products, smokes one-half pack cigarettes per day. Screenin:52 Abuse screen: Denies threats or abuse. Nutritional screening: No deficits noted. vc1 Tuberculosis screening: No symptoms or risk factors identified. Fall Risk None identified. Assessment: 23:55 Pain: Complains of pain in xiphoid area and mid-sternal area Pain currently is 8 out of bh1 10 on a pain scale. 01/03 00:18 Pain:. 1 Vital Signs: 01/02 23:47 BP 132 / 56; Pulse 98; Resp 17; Temp 98.4(O); Pulse Ox 100% on R/A; Weight 61.23 kg; vc1 Height 5 ft. 3 in. (160.02 cm); Pain 9/10; 01/03 02:07 BP 112 / 55; Pulse 71; Resp 18; Pulse Ox 100% on R/A; bh1 02:57 BP 106 / 57; Pulse 103; Resp 18; Pulse Ox 100% on R/A; bh1 01/02 23:47 Body Mass Index 23.91 (61.23 kg, 160.02 cm) vc1 ED Course: 01/02 23:32 Patient arrived in ED. bp1 23:40 James Fleming DO is Attending Physician. ms3 23:[address] PA is PHCP. jmm 23:49 Triage completed. vc1 23:50 Yissel Agarwal, JONO is Primary Nurse. bh1 23:50 Basic Metabolic Panel Sent. bh1 23:50 CBC with Diff Sent. bh1 23:50 LFT's Sent. bh1 23:50 Magnesium Sent. bh1 23:51 NT PRO-BNP Sent. bh1 23:51 PT-INR Sent. bh1 23:51 Troponin HS Sent. 1 23:52 Arm band placed on right wrist. vc1 23:53 Patient maintains SpO2 saturation greater than 95% on room air. vc1 23:53 Patient has correct armband on for positive identification. Placed in gown. Adult w/ vc1 patient. Client placed on continuous cardiac and pulse oximetry monitoring. NIBP monitoring applied. 23:55 No apparent distress. Awaiting lab results, Awaiting radiology results. [facility] 23:55 No provider procedures requiring assistance completed. Inserted saline lock: 20 gauge 1 in left antecubital area, using aseptic technique. Blood collected. 01/03 00:04 XRAY Chest (1 view) In Process Unspecified. EDMS 00:19 Notified Nurse Practitioner and/or Physician Systems Mgr of a critical lab result(s), H\\T\\H [facility] OF 6.3 AND 20.8. 01:12 Ken Hastings MD is Hospitalizing Provider. [facility] 01:31 Missed attempt(s): 22 gauge in right wrist. [facility] 02:04 SARS RAPID Sent. [facility] 02:05 Type And Screen Sent. [facility] 02:08 No apparent distress. Resting quietly. Awaiting bed assignment. [facility] 02:09 Inserted saline lock: 20 gauge in right forearm, using aseptic technique. Blood oe collected. 02:59 Patient admitted, IV remains in place. [facility] Administered Medications: 02:05 Drug: fentaNYL (PF) 25 mcg Route: IVP; Site: right forearm; [facility] 02:05 Follow up: Response: No adverse reaction [facility] Medication: 01/02 23:55 VIS not applicable for this client. [facility] Point of Care Testing: Guaiac: 01/03 01:02 Stool Guaiac: Negative; Stool Hemoccult Control: Pass; ds4 Outcome: 01:12 Decision to Hospitalize by Provider. [facility] 02:58 Admitted to Med/surg accompanied by tech, via wheelchair, room 224, Report called to [facility] BELLE DE LA CRUZ 02:58 Condition: good 02:58 Demonstrated understanding of instructions. 03:13 Patient left the ED. [facility] Signatures: Dispatcher [employer] EDMS Jason Lane PA PA jmm Swanson, Donovan ds4 Stanton Kaminski oe James Fleming, DO DO ms3 PanTami patricio Vanessa, RN RN 1 Yissel Agarwal RN RN 1 Corrections: (The following items were deleted from the chart) 00:19 01/02 23:55 Pain: Complains of pain in xiphoid area and mid-sternal area [place] [id number]
--- NOTE | 2022-01-03 01:13 | EDPHYS ---
Physician Documentation [facility] Name: Cathryn Montana Age: 76 yrs Sex: Female : 1945 Arrival Date: 01/02/2022 Time: 23:32 Bed 19 Private MD: ED Physician James Fleming HPI: 01/02 23:41 This 76 yrs old Female presents to ER via Ambulatory with complaints of Chest Pain > 30 jmm y/o. 23:41 The patient or guardian reports chest pain that is located primarily in the substernal jmm area. Onset: acutely, 1 hour(s) ago. The pain radiates to right jaw. Associated signs and symptoms: Pertinent positives: shortness of breath, Pertinent negatives: abdominal pain. The chest pain is described as aching, sharp. Duration: The patient or guardian reports a single episode, that is still ongoing. Modifying factors: The symptoms are alleviated by nothing. the symptoms are aggravated by nothing. Historical: - Allergies: 23:49 Codeine; vc1 - Home Meds: 23:49 aspirin oral [Active]; Plavix 75 mg Oral tab 1 tab once daily [Active]; vc1 - PMHx: 23:49 abdominal tumor; bleeding lung; blocked artery-no PA; Colitis; COPD; vc1 - PSHx: 23:49 Appendectomy; Hysterectomy; vc1 - Immunization history:: Adult Immunizations up to date. - Social history:: Smoking status: Patient reports the use of cigarette tobacco products, smokes one-half pack cigarettes per day. ROS: 23:41 Constitutional: Positive for body aches. jmm 23:41 Cardiovascular: Positive for chest pain. 23:41 All other systems are negative. Exam: 23:41 Constitutional: This is a well developed, well nourished patient who is awake, alert, jmm and in no acute distress. Head/Face: atraumatic. Eyes: EOMI, no conjunctival erythema appreciated ENT: Moist Mucus Membranes Neck: Trachea midline, Supple Chest/axilla: Normal chest wall appearance and motion. Cardiovascular: Regular rate and rhythm. No edema appreciated Respiratory: Normal respirations, no respiratory distress appreciated Abdomen/GI: Non distended Back: Normal ROM Skin: General appearance color normal MS/ Extremity: Moves all extremities, no obvious deformities appreciated, no edema noted to the lower extremities Neuro: Awake and alert Psych: Behavior is normal, Mood is normal, Patient is cooperative and pleasant Vital Signs: 23:47 BP 132 / 56; Pulse 98; Resp 17; Temp 98.4(O); Pulse Ox 100% on R/A; Weight 61.23 kg; vc1 Height 5 ft. 3 in. (160.02 cm); Pain 9/10; 01/03 02:07 BP 112 / 55; Pulse 71; Resp 18; Pulse Ox 100% on R/A; bh1 02:57 BP 106 / 57; Pulse 103; Resp 18; Pulse Ox 100% on R/A; bh1 01/02 23:47 Body Mass Index 23.91 (61.23 kg, 160.02 cm) vc1 MDM: 01/02 23:41 Patient medically screened. [facility] 01/03 01:10 Data reviewed: vital signs, nurses notes. Counseling: I had a detailed discussion with grant the patient and/or guardian regarding: the historical points, exam findings, and any diagnostic results supporting the discharge/admit diagnosis, lab results, radiology results, the need for further work-up and treatment in the hospital. ED course: I discussed the patient with Dr. Hastings whom accepted the patient to his service. . 01/02 23:41 Order name: Basic Metabolic Panel; Complete Time: 00:53 [facility] 01/02 23:41 Order name: CBC with Diff; Complete Time: 00: [facility] 01/02 23:41 Order name: LFT's; Complete Time: 00:53 [facility] 01/02 23:41 Order name: Magnesium; Complete Time: 00:53 [facility] 01/02 23:41 Order name: NT PRO-BNP; Complete Time: 00:53 [facility] 01/02 23:41 Order name: PT-INR; Complete Time: 00:53 [facility] 01/02 23:41 Order name: Troponin HS; Complete Time: 00:53 [facility] 01/03 00:17 Order name: CBC Smear Scan; Complete Time: 00:53 [facility] 01/03 00:53 Order name: Type And Screen [facility] 01/03 01:18 Order name: Basic Metabolic Panel [facility] 01/03 01:18 Order name: Basic Metabolic Panel [facility] 01/03 01:18 Order name: CBC with Automated Diff [facility] 01/03 01:18 Order name: CBC with Automated Diff [facility] 01/02 23:41 Order name: XRAY Chest (1 view) [facility] 01/02 23:41 Order name: EKG; Complete Time: 23:42 [facility] 01/02 23:41 Order name: Cardiac monitoring; Complete Time: 23:50 [facility] 01/02 23:41 Order name: EKG - Nurse/Tech; Complete Time: 23:50 [facility] 01/02 23:41 Order name: IV Saline Lock; Complete Time: 23:50 [facility] 01/02 23:41 Order name: Labs collected and sent; Complete Time: 23:50 [facility] 01/02 23:41 Order name: O2 Per Protocol; Complete Time: 23:50 [facility] 01/02 23:41 Order name: O2 Sat Monitoring; Complete Time: 23:50 [facility] 01/03 01:18 Order name: EKG Electrocardiogram [facility] 01/03 01:18 Order name: EKG Electrocardiogram [facility] 01/03 01:18 Order name: EKG Electrocardiogram [facility] 01/03 01:18 Order name: EKG Electrocardiogram [facility] 01/03 01:19 Order name: SARS RAPID; Complete Time: 06:08 [facility] Administered Medications: 02:05 Drug: fentaNYL (PF) 25 mcg Route: IVP; Site: right forearm; [facility] 02:05 Follow up: Response: No adverse reaction [facility] Point of Care Testing: Guaiac: 01:02 Stool Guaiac: Negative; Stool Hemoccult Control: Pass; ds4 Disposition: 06:08 Co-signature as Attending Physician, James SHEPARD was immediately available on-site ms3 in the Emergency Department for consultation in the care of the patient.. Disposition Summary: 01/03/22 01:12 Hospitalization Ordered Hospitalization Status: Inpatient Admission [facility] Provider: Ken Hastings Location: Telemetry/MedSur (Inpatient) jmm Condition: Stable jmm Problem: new jmm Symptoms: are unchanged jmm Bed/Room Type: Standard [facility] Room Assignment: 224(01/03/22 02:47) cg Diagnosis - Anemia, unspecified jmm - Chest pain, unspecified jmm Forms: - Medication Reconciliation Form jmm - SBAR form jmm Signatures: Dispatcher [employer] EDIA Jason Lane PA PA jmm Garcia, Cindy, RN RN cg James Fleming DO DO ms3 Jian, Kourtney, RN RN vc1 Yissel Agarwal RN RN bh1 Corrections: (The following items were deleted from the chart) 02:47 01:12 grant mcfarland
[2022-01-03] MEDS ORDERED: ACETAMINOPHEN 500 MG TAB PO PRN (01:16)
[2022-01-03] MEDS ORDERED: FENTANYL CITR 100 MCG/2 ML ONE (01:19)
[2022-01-03 02:45] LABS: SARS-CoV-2 Antigen Rapid Res Negative (Negative)
[2022-01-03 03:36] VITALS: BMI 24.0
[2022-01-03] MEDS ORDERED: NA CHLORIDE 0.9% 250 ML ONE ×2 (05:04→17:04)
[2022-01-03] MEDS ORDERED: ASPIRIN EC 81 MG TAB PO SCH (09:00)
--- NOTE | 2022-01-03 09:25 | EKG ---
Test Date: 2022-01-02 Test Time: 23:43:23 Flow Worker: MEASUREMENT RESULTS: Intervals: Rate: 95 CO: 158 QRSD: 78 QT: 350 QTc: 439 [place]: P: 60 CO: 158 QRS: 53 T: 74 INTERPRETIVE STATEMENTS: Normal sinus rhythm Normal ECG Compared to ECG 06/30/2015 12:42:21 No significant changes Electronically Signed On 01-03-22 09:24:39 CDT by Elbert Coffey
[2022-01-03 09:54] LABS: Hematocrit 23.4 % (36.0-45.0)
--- NOTE | 2022-01-03 15:11 | RAD REPORT ---
EXAM DESCRIPTION: RAD - Chest Single View - 01/03/2022 12:01 am CLINICAL HISTORY: 6 years Female, CHEST PAIN COMPARISON: None FINDINGS: Bilateral interstitial opacities. No pleural effusion. No pneumothorax. Cardiomediastinal silhouette is within normal limits. No acute osseous abnormality. IMPRESSION: Positive for pulmonary opacities. Differential diagnosis includes viral infections. Electronically signed by: Isrrael Chamorro DO 01/03/2022 12:40 AM CDT Due to temporary technical issues with the PACS/Fluency reporting system, reports are being signed by the in house radiologists without review as a courtesy to insure prompt reporting. The interpreting radiologist is fully responsible for the content of the report.
[2022-01-03] MEDS: ATORVASTATIN 80 MG TAB PO SCH (20:08)
[2022-01-03] MEDS ORDERED: ALPRAZOLAM 1 MG TABLET PO SCH (21:00)
[2022-01-03] MEDS ORDERED: AMITRIPTYLINE 50 MG TAB PO SCH (21:00)
[2022-01-03 22:34] LABS: Hematocrit 26.1 % (36.0-45.0)
[2022-01-03] MEDS ORDERED: NA CHLORIDE 0.9% 500 ML IV ONE (23:37)
[2022-01-04 06:09] LABS: Absolute Lymphocytes (CBC) 1.3 K/uL (0.7-4.9); Hematocrit 26.7 % (36.0-45.0); Lymphocytes % 37.1 % (15.3-44.8); MCV 61.6 fL (80-100); Potassium 3.7 mmol/L (3.5-5.1); RBC Red Blood Cell Count 4.33 M/uL (3.86-4.86)
[2022-01-04] MEDS ORDERED: ASPIRIN EC 81 MG TAB PO SCH (09:00)
[2022-01-04 18:03] LABS: Hematocrit 26.9 % (36.0-45.0)
--- NOTE | 2022-01-04 18:50 | PN ---
Date of Progress Note: 01/03/2022 The patient feels somewhat better after a few units of blood. We will transfuse her second unit. Th e etiology is uncertain; however, the patient has been on a full dose of aspirin and Plavix post CVA and this is a probable etiology, although she has had a negative stool guaiac. In the past, she has been positive and also has a history of hemorrhoids and also complications. The remainder of her wor kup has been stable. As far as cardiac is concerned, chest pain has gone and I feel this was seconda ry to anemia. We will continue with second unit of blood and re-evaluate stable, perhaps could be discharged. HR/MODL Voice ID: [id number] Report ID: [id number]
--- NOTE | 2022-01-04 19:11 | PN ---
Date of Progress Note: 01/04/2022 The patient states she feels considerably better after second unit of blood. We will allow her to wa lk around to see this holds with activity. We will repeat H and H around suppertime tonight and if i t is stable, I see no reason follow up with serial CBCs. If it drops, then I think we ___ level perhaps with another unit of blood. Still suspect the most likely etiology is a combin ation of Plavix and regular dose of aspirin. If in fact there was a continued problem, may need to b e scoped. So, therefore she could be discharged tonight if stable, perhaps tomorrow if not. HR/MODL Voice ID: [id number] Report ID: [id number]
[2022-01-04] MEDS: ATORVASTATIN 80 MG TAB PO SCH (20:10)
[2022-01-04 20:30] VITALS: BP 117/55; TEMP 98
[2022-01-04 21:12] VITALS: O2SAT 96
== END 2022-01-04 20:50 | disposition home or self-care (01) | DRG 812 ==
LOC: ER 23:30 → ERHOLD 01-03 01:31 → 2ND 01-03 03:02
PROVIDERS: ADMIT Family Medicine; ATTEND Family Medicine
PROC: 30233N1 Transfusion of Nonautologous Red Blood Cells into Peripheral Vein, Percutaneous Approach (ICD-10-PCS; principal; 2022-01-03)
DX: D64.9 Anemia, unspecified (principal); Z79.82 Long term (current) use of aspirin; J44.9 Chronic obstructive pulmonary disease, unspecified; F17.210 Nicotine dependence, cigarettes, uncomplicated; R07.9 Chest pain, unspecified; Z86.73 Personal history of transient ischemic attack (TIA), and cerebral infarction without residual deficits; Z20.822 Contact with and (suspected) exposure to COVID-19
CPT/HCPCS: 36415; 36430; 71045; 80048; 80076; 83735; 83880; 84484; 85014; 85018; 85025; 85610; 86850; 86900; 86901; 87811; 93005; 96374; 99285; J3010; J7040; J7050; P9016